=== PATIENT | female | born 2000 | race Caucasian/White ===

== ENCOUNTER 2025-10-17 12:33 | Outpatient (REF) | payer OTHER, SELFPAY ==
--- NOTE | ~2025-10-17 | XR_ITS ---
EXAMINATION: XR TIBIA FIBULA 2 VIEWS LEFT HISTORY: M79.605 - Pain in left leg COMPARISON: There are no prior studies available for comparison. FINDINGS: AP and lateral views of the left tibia and fibula are submitted. Osseous mineralization is normal. There is no fracture or dislocation. The visualized knee and ankle joint spaces are preserved. The soft tissues are unremarkable. XR/XR tibia fibula LT 2V IMPRESSION: Unremarkable examination of the left tibia and fibula. Electronically signed by: Tim Munoz MD 10/17/2025 02:50 PM EST
--- OUTSIDE RECORDS SUMMARY | 2025-10-17 19:27 | XMS_ITS | Encounter Summary ---
Author Organization [facility] Address [address] [place], [place] [id number] Phone Care Team Providers Care Media Arts Professor Name Role Phone Susan Young MD Primary Care Provider [phone] Encounter Details Date Type Department Care Team (Late st Contact Info) Description 10/06/2017 Conversion Encounter [facility] [address] [place] [address] Susan Young MD [address] [place] [address] Social History Tobacco Use Types Packs/Day Years Used Date Smoking Tobacco: Never Comments:never smoker Comments Unknown Sex and Gender Information Value Date Recorded Sex Assigned at Not on file Legal Sex Female 11:43 PM EST Gender Identity Not on file Sexual Orientation Not on file documented as of this encounter Plan of Treatment Not on file documented as of this encounter Visit Diagnoses Not on filedocumented in this encounter Care Teams Media Arts Professor Relationship Specialty Start Date End Date Susan Young MD [address] [place] [address] PCP - General 01/13/17 documented as of this encounter
--- OUTSIDE RECORDS SUMMARY | 2025-10-17 19:27 | XMS_ITS | Encounter Summary ---
Author Organization [facility] Address [address] [facility] [address] [place] [address] Phone Care Team Providers Care School Principal Name Role Phone Colette Delarosa Primary Care Provid er Elder Parker MD Primary Care Provider [phone] Encounter Details Date Type Department Care Team (Late st Contact Info) Description 06/09/2025 Procedure Pass [facility], [address] [id number] Social History Tobacco Use Types Packs/Day Years Used Date Smoking Tobacco: Former Cigarettes Smokeless Tobacco: Current Comments:Pt uses nicotine po uch. Alcohol Use Standard Drinks/Week Comments Yes 3 (1 standard drink = 0.6 oz pur e alcohol) Education Answer Date Recorded Are you interested in more education? Not on andres e 06/24/2024 Are you concerned about learning? Not on file 06/24/2024 No 06/24/2024 No 06/24/2024 Digital Access Answer Date Recorded No 06/24/2024 No 06/24/2024 Reliable internet access at home? Not on file 06/24/2024 Device with a working camera? Not on file Comments No Sex and Gender Information Value Date Recorded Sex Assigned at Not on file Legal Sex Female 6:47 PM EST Gender Identity Not on file Sexual Orientation Not on file documented as of this encounter Plan of Treatment Not on file documented as of this encounter Visit Diagnoses Not on filedocumented in this encounter Care Teams School Principal Relationship Specialty Start Date End Date Colette Delarosa PA [address] [place] [address] PCP - General Physician Streetcar Starter 02/28/25 06/24/25 Elder Parker MD [address] [place] [address] [address] [place] [address] PCP - General Plastic and Reconstructive Surgery 06/25/25 documented as of this encounter Additional Source Comments The information contained in this document represents components of the legal health record. It is not the complete legal health record.[facility]
--- OUTSIDE RECORDS SUMMARY | 2025-10-17 19:27 | XMS_ITS | Encounter Summary ---
Author Organization [facility] Address [address] [place] [address] Phone Care Team Providers Care Monotypist Name Role Phone Colette Delarosa Primary Care Provid er Colette Delarosa Primary Care Provid er Elder Parker MD Primary Care Provider [phone] Encounter Details Date Type Department Care Team (Late st Contact Info) Description 01/13/2025 Prep for Surgery [facility] Orthopedics & Sports Medicine [address] [place] [address] Radha Davison MD [address] [place] [address] Orthopedics & Sports Medicine, [facility] [place] [address] [email or web address] Social History Tobacco Use Types Packs/Day Years Used Date Smoking Tobacco: Former Cigarettes Smokeless Tobacco: Current Comments:Pt uses nicotine po uch. Education Answer Date Recorded Are you interested in more education? Not on andres e 06/24/2024 Are you concerned about learning? Not on file 06/24/2024 No 06/24/2024 No 06/24/2024 Digital Access Answer Date Recorded No 06/24/2024 No 06/24/2024 Reliable internet access at home? Not on file 06/24/2024 Device with a working camera? Not on file Comments Unknown Sex and Gender Information Value Date Recorded Sex Assigned at Not on file Legal Sex Female 6:47 PM EST Gender Identity Not on file Sexual Orientation Not on file documented as of this encounter Plan of Treatment Not on file documented as of this encounter Visit Diagnoses Not on filedocumented in this encounter Care Teams Monotypist Relationship Specialty Start Date End Date Colette Delarosa PA PCP - General Physician Metal Flooring Installer 06/24/24 02/27/25 Colette Delarosa PA [address] [place] [address] PCP - General Physician Metal Flooring Installer 02/28/25 06/24/25 Elder Parker MD [address] [place] [address] [address] [place] [address] PCP - General Plastic and Reconstructive Surgery 06/25/25 documented as of this encounter Additional Source Comments The information contained in this document represents components of the legal health record. It is not the complete legal health record.[facility]
--- OUTSIDE RECORDS SUMMARY | 2025-10-17 19:27 | XMS_ITS | Clinical Summary ---
Author Organization [facility] Address [address] [place] [address] Phone Care Team Providers Care Charge Operator Name Role Phone Elder Parker MD Primary Care Provider Allergies Active Allergy Reactions Criticality Noted Date Comments Chocolate 12/27/2024 Other Reaction(s): canker sores severe Medications traZODone (DESYREL) 50 MG tablet 06/21/2024 Active sertraline (ZOLOFT) 100 MG tablet 06/21/2024 Active busPIRone (BUSPAR) 15 MG tablet 06/11/2024 Active rOPINIRole (REQUIP) 0.25 MG tablet 06/06/2024 Active FEROSUL 325 mg (65 mg iron) tablet Take 1 tablet by mouth every morning. 06/07/2024 Active ondansetron (ZOFRAN) 4 MG tablet Take 1 tablet by mouth every 8 (eight) hours as needed. 09/26/2023 Active Active Problems Problem Noted Date Diagnosed Date Right carpal tunnel syndrome 02/04/2025 Tendinitis, de Quervain's 02/04/2025 Encounters Date Type Department Care Team Description 08/01/2025 8:45 AM EDT Office Visit [facility] [address] [place] [address] Colette Delarosa PA Menard, Angela, SUZI Carpal tunnel syndrome of right wrist (Primary Dx); Radial styloid tenosynovitis (de quervain) from Last 3 Months Immunizations Immunization Administration Dates Next Due DTaP, unspecified formulation 07/27/2003 ,12/29/1999,1998,1997,1998 Hepatitis B, unspecified formulation 03/28/1999, 1998,1998 Hib, unspecified formulation 09/28/1999, 1998,1998,1997 MMR 07/27/2003,09/28/1999 Polio, Unspecified Formulation 3,12/29/1999,1998,1997 Varicella 12/21/2007,05/28/2001 Social History Tobacco Use Types Packs/Day Years [...] on file Sexual Orientation Not on file Last Filed Vital Signs Vital Sign Reading Time Taken Comments Blood Pressure 113/71 02/04/2025 8:45 AM EDT Pulse 56 02/04/2025 8:30 AM EDT Temperature 36.1 C (97 F) 02/04/2025 8:00 AM EDT Respiratory Rate 16 02/04/2025 8:30 AM EDT Oxygen Saturation 97% 02/04/2025 8:45 AM EDT Inhaled Oxygen Concentration - - Weight 72.6 kg (160 lb) 06/22/2025 7:37 PM EDT Height 162.6 cm (5' 4 ) 06/22/2025 7:37 PM EDT Body Mass Index 27.46 06/22/2025 7:37 PM EDT Plan of Treatment Health Maintenance Due Date Last Done Comments DEPRESSION SCREENING 2010 SMOKING Hx and SMOKELESS TOBACCO SCREENING 2011 HEPATITIS C SCREENING 2016 HIV ONE-TIME SCREENING (18-65 YEARS) 2016 INFLUENZA VACCINE (#1) 2025 COVID-19 VACCINE ( season) 2025 01/02/2021, 12/05/2020 PAP SMEAR 08/02/2025 08/02/2022 Adult Td,Tdap Booster 11/18/2033 11/18/2023, 010 HIB VACCINES Completed 09/28/1999, 03/1999, 1998, Additional history exists IPV VACCINES Completed 07/27/2003, 03/2000, 1998, Additional history exists HEPATITIS A VACCINES Aged Out No long er eligible based on patient's age to complete this topic MENINGOCOCCAL VACCINES (ACWY) Aged Out No longer eligible based on patient's age to complete this topic MENINGOCOCCAL VACCINES (B) Aged Out N o longer eligible based on patient's age to complete this topic PNEUMOCOCCAL VACCINES (0-49 years) Aged Out No longer eligible based on patient's age to complete this topic Medical Devices Not on file Insurance [facility] [place] [address] Care Teams Charge Operator Relationship Specialty Start Date End Date Elder Parker MD [address] [place] [address] Drive [address] [place] [address] PCP - General Plastic and Reconstructive Surgery 06/25/25 Additional Source Comments The information contained in this document represents components of the legal health record. It is not the complete legal health record.[facility]
--- OUTSIDE RECORDS SUMMARY | 2025-10-17 19:27 | XMS_ITS | Clinical Summary ---
Author Organization [facility] [address] [place] [address] [place] [phone] Phone Care Team Providers Care Rn Physician Office Name Role Phone Lauren Floyd MD Primary Care Provider [phone] Allergies Active Allergy Reactions Criticality Noted Date Comments Chocolate 12/27/2024 Other Reaction(s): canker sores severe Medications ondansetron (ZOFRAN) 4 mg tablet Take 1 Tablet by mouth every 8 hours as needed for Nausea. 3 Active traZODone (DESYREL) 50 mg tablet TAKE 1/2 TO 1 TABLET BY MOUTH AT BEDTIME NEEDED FOR SLEEP 90 tablet 1 5 Active FeroSuL 325 mg (65 mg iron) tablet TAKE 1 TABLET BY MOUTH EVERY DAY 90 tablet 1 5 Active rOPINIRole (REQUIP) 1 mg tabletIndicati ons:Restless leg TAKE 1 TABLET(1 MG) BY MOUTH AT BEDTIME 90 tablet 5 Active busPIRone (BUSPAR) 15 mg tablet TAKE 1 TABLET(15 MG) BY MOUTH TWICE DAILY 180 tablet 5 Active sertraline (ZOLOFT) 100 mg tablet TAKE 1 TABLET BY MOUTH DAILY 90 tablet 5 Active rOPINIRole (REQUIP) 1 mg tabletIndicati ons:restless leg syndrome Take 1 tablet (1 mg total) by mouth at bedtime. 90 each 1 5 09/20/20 25 Discontinued sertraline (ZOLOFT) 100 mg tablet TAKE 1 TABLET BY MOUTH DAILY 90 tablet 5 10/17/20 25 Discontinued busPIRone (BUSPAR) 15 mg tablet Take 1 tablet (15 mg total) by mouth 2 (two) times a day. 180 tablet 5 10/17/20 25 Discontinued Active Problems Problem Noted Date Diagnosed Date Large breasts 09/26/2023 Restless leg 09/26/2023 Depression 02/22/2022 Anxiety disorder 02/22/2022 PTSD (post-traumatic stress disorder) 02/22/2022 Immunizations Immunization Administration Dates Next Due DTaP (Infanrix) 6wks to less than 7yo ,12/29/1999,1998,1997,1998 AFbI-BTJ-IEM (Pentacel) 2mo to less than 5yo 09/28/1999,1998,1998,1997 Hepatitis B Pediatric (Enger ix B; Recombivax HB) to less than 20 yo 03/28/1999,1998,1998 IPV Inactivated polio (Ipol) 6wks and older 07/27/2003,12/29/1999,1998,1997 MMR, measles mumps and rubel la Live (Priorix; M-M-R II) 12mo and older 07/27/2003,09/28/1999 Varicella live (Varivax) 12m o and older 12/21/2007,05/28/2001 Surgical History Surgery Date Site/Laterality Comments OTHER SURGICAL HISTORY PROCEDURE: DENIES PREVIOUS SURGERY Medical History Medical History Date Comments Anxiety disorder DX:Anxiety diso rder Depression DX:Depression PTSD (post-traumatic stress disorder) DX:PTSD (post-traumatic stress disorder) Family History Medical History Relation Name Comments Hypertension Father Hypertension Mother Relation Name Status Comments Father Mother Social History Tobacco Use Types Packs/Day Years Used Date Smoking Tobacco: Former Cigarettes Smokeless Tobacco: Current Tobacco Cessation:Ready to Q uit: Not Asked Comments:Smoked for 2.5 years 6 cig - one PPD Quit more than 5 years ago Currently uses nicotene pouches Alcohol Use Standard Drinks/Week Comments Yes 0 (1 standard drink = 0.6 oz pur e alcohol) social occ Housing Instability Answer Date Recorde d Are you worried that in the next 2 months you may not have stable housing? No 05/09/2025 Food Access & Nutrition Answer Date Rec orded Do you have access to a vari ety of food including fruits and vegetables? Yes 05/09/2025 Health Literacy Answer Date Recorded How often do you need to hav e someone help you when you read instructions, pamphlets, or other written material from your doctor or pharmacy? Never 05/09/2025 Caregiver: How often do you need to have someone help you when you read instructions, pamphlets, or other written material from your doctor or pharmacy? Not on file 05/09/2025 Financial Risk Answer Date Recorded How hard is it for you to pa y for the very basics like food, housing, medical care, and air conditioning / heating? Patient declined 05/09/2025 Food Risk Answer Date Recorded Within the past 12 months we worried whether our food would run out before we got money to buy more. Never true 05/09/2025 Within the past 12 months th e food we bought just didn't last and we didn't have money to get more. Never true 05/09/2025 Dependent Care Answer Date Recorded Do you need help finding or paying for care for your loved ones. For example, salesperson children's shoes or elderly care for an older adult? No 05/09/2025 Education Answer Date Recorded Do you think completing more education or training, like finishing a GED, going to college, or learning a trade, would be helpful for you? N/A 05/09/2025 Employment and Income Answer Date Recor ded During the last four weeks, have you been actively looking for work? No 05/09/2025 Living Situation Answer Date Recorded What is your living situation? Unrecognized valu e 05/09/2025 Comments No Sex and Gender Information Value Date Recorded Sex Assigned at Not on file Legal Sex Female 4:40 PM EST Gender Identity Not on file Sexual Orientation Not on file Obstetrics History Last Filed Vital Signs Vital Sign Reading Time Taken Comments Blood Pressure 120/75 05/30/2025 3:21 PM EDT aut o Pulse 71 05/30/2025 3:21 PM EDT Temperature - - Respiratory Rate - - Oxygen Saturation - - Inhaled Oxygen Concentration - - Weight 86.5 kg (190 lb 12.8 oz) 05/30/2025 3:21 PM EDT Height 162.6 cm (5' 4 ) 05/30/2025 3:21 PM EDT Body Mass Index 32.75 05/30/2025 3:21 PM EDT Plan of Treatment Upcoming Encounters Date Type Department Care Team (Late st Contact Info) Description 11/21/2025 9:15 AM EST Office Visit Internal Medicine - [facility] [address] [place] [address] Alma Chauhan, DRAKE [address] [place] [address] Health Maintenance Due Date Last Done Comments DTaP,Tdap,and Td Vaccines (7 - Td or Tdap) 07/05/2020 07/05/2010, 07/27/2003, 07/27/2003, Additional history exists HIV Screening 10/23/2022 HPV Vaccines (1 - 3-dose SCDM series) 2025 COVID-19 Vaccine ( season) 2025 01/02/2021, 12/05/2020 Influenza Vaccine (#1) 2025 12/15/2013 Cervical Cancer Screening: Pap Smear 08/02/2025 08/02/2022, 08/02/2022, 08/02/2022 Social Influencers of Health Screening 05/09/2026 05/09/2025 Cholesterol Screening (Lipid Panel) 09/25/2027 09/25/2022 RSV Immunization Adult Patients (1 - 1-dose 75+ series) 2073 Hepatitis B Vaccines Completed 03/28/1999, 1998, 1998 HIB Vaccines Completed 09/28/1999, 03/1999, 1998, Additional history exists IPV Vaccines Completed 07/27/2003, 03/2000, 09/28/1999, Additional history exists MMR Vaccines Completed 07/27/2003, 09/28/1999 Varicella Vaccines Completed 12/21/2007, 05/28/2001 Meningococcal ACWY Vaccine Completed 10/05/2015, Hepatitis C Screening Completed 09/25/2022 Depression Screening Completed 05/09/2025 Hepatitis A Vaccines Aged Out No long er eligible based on patient's age to complete this topic Meningococcal B Vaccine Aged Out No l onger eligible based on patient's age to complete this topic Pneumococcal Vaccine: Pediatrics (0 to 5 Years) and At-Risk Patients (6 to 49 Years) Aged Out No longer eligible based on patient's age to complete this topic RSV Immunization Patients Under 20 months Aged Out No longer eligible based on patient's age to complete this topic Procedures Procedure Name Priority Date/Time Associated Diagnosis Comments HEPATITIS C SCREENING Routine 09/25/2022 LIPID PANEL Routine 09/25/2022 PAP SMEAR Routine 08/02/2022 from Last 3 Months or Most Recently Relevant to Health Maintenance Results * Hepatitis C Screening (09/25/2022) Hepatitis C Screening abstracted Historical Provider MD HEALTH MAINTENANCE Final Result * Lipid panel (09/25/2022) LDL/HDL Ratio 4 0 - 4 Triglycerides 98 0 - 150 mg/dL Cholesterol 149 0 - 200 mg/dL HDL 41 >=40 mg/dL LDL Cholesterol 89 0 - 100 mg/dL Blood Venous blood specimen / Unknown Historical Provider MD LAB BLOOD ORDERABLES Elida l Result * Pap smear (08/02/2022) 08/02/2022 Narrative HISTORICAL TESTING LAB RESULTING AGENCY - 08/12/2022 8:16 AM EDT [id number] THINPREP PAP, IMAGED: NEGATIVE FOR SQUAMOUS INTRAEPITHELIAL LESION AND MALIGNANCY . DAVE LNIARES , KALYAN(ASCP) (CASE ELECTRONICALLY SIGNED 08 10 2022) ADEQUACY: SATISFACTORY ENDOCERVICAL/TRANSFORMATION ZONE COMPONENT PRESENT. SOURCE: THINPREP PAP HPV IF ASCUS, CERVICAL, IMAGED CLINICAL INFORMATION: HPV IF DIAGNOSIS OF ASCUS. HORMONES, [Z12.4] Jil Faith CNM LAB CYTOLOGY ORDERABLES Final Result HISTORICAL TESTING LAB RESULTING AGENCY from Last 3 Months or Most Recently Relevant to Health Maintenance Insurance [facility] [place] [id number] Care Teams Rn Physician Office Relationship Specialty Start Date End Date Lauren Floyd MD [address] [facility] [place] [address] PCP - General Internal Medicine 01/21/25
--- OUTSIDE RECORDS SUMMARY | 2025-10-17 19:27 | XMS_ITS | Encounter Summary ---
Author Organization [facility] Address [address] [address] Phone Care Team Providers Care Licensed Prosthetist Name Role Phone Colette Delarosa Primary Care Provid er Colette Delarosa Primary Care Provid er Elder Parker MD Primary Care Provider [phone] Encounter Details Date Type Department Care Team (Late st Contact Info) Description 02/04/2025 Procedure Pass OR Admitting Dept - Virtual Department [address] [place] [address] Social History Tobacco Use Types Packs/Day Years [...] on filedocumented in this encounter Care Teams Licensed Prosthetist Relationship Specialty Start Date End Date Colette Delarosa PA PCP - General Physician Division Operations Manager 06/24/24 02/27/25 Colette Delarosa PA [address] [place] [address] PCP - General Physician Division Operations Manager 02/28/25 06/24/25 Elder Parker MD [address] [place] [address] [place] [address] PCP - General Plastic and Reconstructive Surgery 06/25/25 documented as of this encounter Additional Source Comments The information contained in this document represents components of the legal health record. It is not the complete legal health record.[facility]
--- OUTSIDE RECORDS SUMMARY | 2025-10-17 19:27 | XMS_ITS | Clinical Summary ---
Author Organization [facility] Address [address] [place], [place] [id number] Phone Care Team Providers Care Testing Shaking Shipping Name Role Phone Susan Young MD Primary Care Provider Immunizations Immunization Administration Dates Next Due DTaP 07/27/2003, 0,1998,10/28,1998 Hep B, ped/adol 03/28/1999,1998,1998 Hib (PRP-T) 09/28/1999, 9,1998,08/28 IPV 07/27/2003, 0,1998,08/28 Influenza, injectable, quadr ivalent, preservative free 12/15/2013 MMR 07/27/2003,09/28/1999 Meningococcal Conjugate 10/05/2015,04/03/2012 Tdap 07/05/2010 Varicella 12/21/2007,05/28/2001 Social History Tobacco Use Types Packs/Day Years Used Date Smoking Tobacco: Never Comments:never smoker Comments Unknown Sex and Gender Information Value Date Recorded Sex Assigned at Not on file Legal Sex Female 11:43 PM EST Gender Identity Not on file Sexual Orientation Not on file Last Filed Vital Signs Vital Sign Reading Time Taken Comments Blood Pressure 130/70 10/05/2015 12:00 AM EST Pulse 64 10/05/2015 12:00 AM EST Temperature 36.3 C (97.4 F) 03/04/2013 12:00 AM EDT Respiratory Rate - - Oxygen Saturation 100% 02/19/2011 12:00 AM EDT Inhaled Oxygen Concentration - - Weight 72.6 kg (160 lb) 10/05/2015 12:00 AM EST Height 163.8 cm (5' 4.5 ) 10/05/2015 12:00 AM ES T Body Mass Index 27.04 10/05/2015 12:00 AM EST Plan of Treatment Health Maintenance Due Date Last Done Comments DTaP,Tdap,and Td Vaccines (7 - Td or Tdap) 07/05/2020 07/05/2010, 07/27/2003, 12/29/1999, Additional history exists Influenza Vaccines (#1) 2025 12/15/2013 HPV Vaccines (1 - 3-dose SCDM series) 2025 COVID-19 Vaccine (2024- season) 2025 Hepatitis B Vaccines Completed 03/28/1999, 1998, 1998 HIB Vaccines Completed 09/28/1999, 03/1999, 1998, Additional history exists IPV Vaccines Completed 07/27/2003, 03/2000, 1998, Additional history exists MMR Vaccines Completed 07/27/2003, 09/28/1999 Varicella Vaccines Completed 12/21/2007, 05/28/2001 Meningococcal Vaccine Completed 10/05/2015, 012 Hepatitis A Vaccines Aged Out No long er eligible based on patient's age to complete this topic Men B Vaccine Aged Out No longer elig ible based on patient's age to complete this topic Pneumococcal Vaccine Aged Out No long er eligible based on patient's age to complete this topic Insurance [facility] PPO Care Teams Testing Shaking Shipping Relationship Specialty Start Date End Date Susan Young MD [address] [place] [address] PCP - General 01/13/17
== END 2025-10-17 12:34 | disposition home or self-care (01) ==
LOC: HO.HMGCX 12:33
PROVIDERS: Visit Provider Nurse Practitioner Family
DX: M79.605 Pain in left leg (principal)
CPT/HCPCS: 73590

== ENCOUNTER 2025-10-17 12:33 | Outpatient (AMB) | payer OTHER, SELFPAY ==
--- NOTE | 2025-10-17 13:23 | MHC.OFFWIV ---
Intake Vital Signs 10/17/25 13:24 Height 5 ft 4 in Weight 185 lb BMI 31.8 BP 118/60 Blood Pressure Location Lt brachial Position Sitting Pulse 62 Pulse Source Pulse Oximeter Pulse Oximetry (%) 99 Oxygen Delivery Method Room Air Intake Visit Reasons: EXHAUST AND MUFFLER FITTER LT leg injury ( NOT WC) Intake Note: Patient presents c/o left lower leg pain, swelling x4 days. Allergies No Known Allergies Allergy (Verified 10/17/25 13:26) Do you need a note to return to daycare/school/sports/work: No HPI HPI Comments History of Present Illness Details 25 y/o female patient presents to the walk-in clinic with c/o left lower leg pain and swelling for 4 days. Symptoms began after tripping and falling down the stairs, landing on and twisting her left lower leg. Reports persistent pain, tenderness, bruising, and swelling over the left Tib/Fib area. States she has been using acetaminophen, NSAIDs, and RICE therapy with minimal relief. Denies numbness, tingling, weakness, calf warmth, redness, fever, or decreased sensation. No previous injury to the area. [facility] Medical History (Updated 10/17/25 @ 14:30 by Stacia Jacobo, DRAKE) Left leg pain Review of Systems Const All systems reviewed & are unremarkable except as noted in HPI and below Physical Exam Vital Signs: Last Vital Signs Pulse 62 10/17/25 13:24 BP 118/60 10/17/25 13:24 Pulse Ox 99 10/17/25 13:24 Oxygen Delivery Method Room Air 10/17/25 13:24 BMI result Body Mass Index 31.8 Const General: no acute distress Nutritional Appearance: overweight Orientation/consciousness: patient oriented x3 Neuro General: patient oriented x3, gait normal and moves all extremities Extrem Other: Left Lower Leg: Visible ecchymosis along mid-shaft tib/fib region - Moderate swelling, Tender to palpation over tibia and fibula, No deformity noted. Full but painful ROM of ankle. Negative Roper test. Distal pulses 2+; cap refill <2 sec Sensation intact throughout foot and lower leg. Psych Speech and movement: Normal speech and movement present Assessment & Plan Assessment & Plan (1) Left leg pain: Code(s): M79.605 - Pain in left leg Plan: Left lower leg injury ? concern for possible tib/fib fracture vs contusion vs periosteal injury. Ordered Left Tib/Fib X-ray to rule out fracture. Continue RICE (rest, ice, compression, elevation). Recommended NSAIDs PRN for pain/inflammation. Advised gentle ROM exercises. If X-ray negative but pain persists >1 week, consider repeat imaging or Ortho referral. Strict return precautions: increasing pain, numbness/tingling, inability to bear weight, redness/warmth suggestive of infection, or worsening swelling. Orders: Orders XR tibia fibula LT 2V Today M79.605 - Pain in left leg Coding Level of Care Code New Pt Level 4 (20826) Diagnoses Left leg pain M79.605 Time Spent (min) 20
[2025-10-17 13:24] VITALS: BP 118/60; PULSE 62; O2SAT 99; BMI 31.8
== END 2025-10-17 14:34 | disposition home or self-care (01) ==
PROVIDERS: Visit Provider Nurse Practitioner Family
DX: M79.605 Pain in left leg (principal)

== ENCOUNTER → 2025-10-17 14:35 | Outpatient (BNV) | payer OTHER, SELFPAY | PROVIDERS: Visit Provider Radiology Diagnostic Radiology | DX: M79.605 Pain in left leg (principal) | CPT/HCPCS: 73590 ==